=== PATIENT | female | born 1980 | race Hispanic/Latino ===

== ENCOUNTER 2016-10-23 22:04 | Emergency (ER) | payer SELFPAY ==
[2016-10-23 22:04] VITALS: BMI 20.3
[2016-10-23 22:42] VITALS: BP 132/92; PULSE 80; RESP 16; TEMP 98.2; O2SAT 99
--- NOTE | 2016-10-23 23:53 | C.PDOC ---
History Of Present Illness 36 year old patient, with a past medical history of chronic anxiety, presents to the ED requesting a refill of her Xanax. Patient reports she takes 1 mg Xanax po for the past 15 years. She just moved here from [place] about 2 weeks ago. Patient has not taken any Xanax since she was here. She reports intermittent anxiety symptoms and complains of nausea at this time. Patient denies vomiting, shortness of breath, chest pain, chest tightness, or palpitations. Time Seen by Provider: 10/23/16 23:23 Chief Complaint (Nursing): Anxiety History Per: Patient History/Exam Limitations: no limitations Onset/Duration Of Symptoms: Other Current Symptoms Are (Timing): Still Present Suicide/Self Injury Attempted (Context): None Modifying Factor(s): None Severity: None Pain Scale Rating Of: 0 Associated Symptoms: Anxiety Recent travel outside of the [place]: No Past Medical History Reviewed: Historical Data, Nursing Documentation, Vital Signs Vital Signs: Last Vital Signs Temp 98.2 F 10/23/16 22:35 Pulse 80 10/23/16 22:35 Resp 16 10/23/16 22:35 BP 132/92 H 10/23/16 22:35 Pulse Ox 99 10/24/16 02:53 - Medical History PMH: Anxiety Family History: States: Unknown Family Hx - Social History Hx Alcohol Use: No Hx Substance Use: No - Immunization History Hx Influenza Vaccination: No Hx Pneumococcal Vaccination: No Review Of Systems Except As Marked, All Systems Reviewed And Found Negative. Cardiovascular: Negative for: Chest Pain, Palpitations, Other (chest tightness) Respiratory: Negative for: Shortness of Breath Gastrointestinal: Positive for: Nausea. Negative for: Vomiting Physical Exam - Physical Exam Appears: Well, Non-toxic, No Acute Distress Skin: Warm, Dry Head: Atraumatic, Normacephalic Neck: Supple Respiratory: No Accessory Muscle Use Extremity: Normal ROM Neurological/Psych: Oriented x3 Gait: Steady ED Course And Treatment O2 Sat by Pulse Oximetry: 99 (RA) Pulse Ox Interpretation: Normal Progress Note: Zofran, Xanax and Tylenol are given. Patient is also provided with information to visit [facility] for evaluations and management of her medication. Patient is discharged. Return if symptoms worsen. Disposition - Disposition Disposition: HOME/ ROUTINE Disposition Time: 00:11 Condition: STABLE Additional Instructions: Please follow up with [facility] tomorrow for evaluation and management Instructions: Anxiety (ED) - Clinical Impression Clinical Impression: Anxiety, Medication refill - PA / ORTHOTICS PROSTHETICS TECHNICIAN / Resident Statement MD/DO has reviewed & agrees with the documentation as recorded. - Scribe Statement The provider has reviewed the documentation as recorded by the Scribe Shannan Avery All medical record entries made by the Scribe were at my direction and personally dictated by me. I have reviewed the chart and agree that the record accurately reflects my personal performance of the history, physical exam, medical decision making, and the department course for this patient. I have also personally directed, reviewed, and agree with the discharge instructions and disposition.
== END 2016-10-24 00:23 | disposition home or self-care (01) ==
LOC: C.ER 22:04
DX: F41.9 Anxiety disorder, unspecified (principal); Z76.0 Encounter for issue of repeat prescription